=== PATIENT | female | born 1975 | race Caucasian/White ===

== ENCOUNTER → 2020-01-22 | Outpatient (CLI) | payer OTHER ==
[~2020-01-22] MED LIST: BIOTIN5000 MCG PO; MELATONIN3 M1 PO; METFORMIN HCL500 MG PO; PEPCID40 MG PO; TRAMADOL 50 MG50 MG PO; VITAMIN B-121000 MC3 PO; VITAMIN D350 MCG PO; WELLBUTRIN SR150 M1 PO
== END ==
LOC: M.LAB 13:16
PROVIDERS: ATTEND Surgery
DX: Z01.812 Encounter for preprocedural laboratory examination (principal); K80.20 Calculus of gallbladder without cholecystitis without obstruction; Z20.828 Contact with and (suspected) exposure to other viral communicable diseases

== ENCOUNTER → 2020-01-27 | Day surgery (SDC) | payer OTHER ==
[2020-01-27 06:34] LABS: HEMATOCRIT 37.5 % (37.0-47.0); HEMOGLOBIN 12.6 gm/dL (12.0-15.0)
--- NOTE | 2020-01-29 18:57 | OP ---
[address] [address] OPERATIVE REPORT Name: NAEEM HUANG Room: [facility]#: [id number] Admission: 01/27/20 Attend Phys: Jazz Feliciano Discharge: Date of : 71 Report #: [id number] THIS REPORT FOR: //name// cc: ADITI SABILLON PA-C, MASON PA-C ~ CC: Eddie SABILLON DICTATED BY: Sheng Gottlieb DO DATE OF SERVICE: 01/27/2020 PREOPERATIVE DIAGNOSIS: Cholelithiasis, biliary colic. POSTOPERATIVE DIAGNOSIS: Cholelithiasis with acute cholecystitis. PRIMARY SURGEON: Eddie Padgett DO. GLOVE PARTS CUTTER: Sheng Gottlieb DO, PGY4. OPERATION PERFORMED: Laparoscopic cholecystectomy. ANESTHESIA TYPE: General and regional TAP blocks. ESTIMATED BLOOD LOSS: 20. SPECIMEN REMOVED: Gallbladder. COMPLICATIONS: None. FINDINGS: Distended hyperemic hypervascular gallbladder with multiple peritoneal and mesenteric attachments consistent with acute cholecystitis as well as the gallbladder was full of small gravel-like stones. INDICATIONS FOR PROCEDURE: The patient is a pleasant 44-year-old female who presented to the office with chief complaint of right upper quadrant abdominal pain with nausea and vomiting exacerbated by postprandial fried and fatty foods. She was found to have cholelithiasis without signs of cholecystitis on abdominal ultrasound. We recommended laparoscopic cholecystectomy as outpatient and patient agreed to proceed. We discussed in detail with the patient both in the office and in the preoperative holding area. The procedure, alternatives, risks, and benefits and possible complications discussed to include but not limited to bleeding, infection, postoperative pain, scarring, hernia, injury to other underlying abdominal organs mainly bowel, liver, stomach and bile ducts. The patient voiced understanding and elected [place] [address] OPERATIVE REPORT Name: BELINDAAnaNAEEM Room: [facility]#: [id number] Admission: 01/27/20 Attend Phys: Jazz Feliciano Discharge: Date of : 71 Report #: [id number] OPERATIVE TECHNIQUE: The patient was again seen and examined in preoperative holding area. Fully informed written consent was obtained and anesthesia consented the patient for TAP blocks. Abdomen was marked. The patient was subsequently transported to the operating room suite and placed on the operating table in a comfortable supine position, 2 grams Ancef were given for preoperative antibiotics. At this time Anesthesia induced general anesthesia via endotracheal intubation. This was successful. Arms were outstretched on arm boards. SCDs were placed to bilateral lower extremity calves. Grounding pad was placed on the right lateral thigh, Upper extremity Edith Hugger was placed across the patient's chest. All extremities and joints were padded and protected. The safety strap was placed across the patient's lap. The patient was then prepped and draped using standard sterile fashion. Time-out was performed prior to onset of procedure. We began by making a vertical incision superior to the umbilicus. Using open Elliott technique, we dissected down to the subcutaneous tissue using blunt and electrocautery, with finger and S retractors to reach the level of fascia. One the midline fascia was reached it was grasped and elevated with two Kochers. Once this was performed, the fascia was transected using electrocautery. Hemostat was then used to the peritoneum and a finger sweep was then performed to ensure there was no bowel or adhesions obstructing our view. At this time, two 0 Vicryl stay sutures on a UR-6 were placed on the bilateral fascial edges and a 12 mm Mary trocar was placed in the abdomen. Abdomen was insufflated first using low flow then high flow. A 5 mm 0-degree laparoscopic camera was placed in the abdomen. Abdomen was surveyed noting no obvious gross acute issues. An additional 5 mm trocar was placed in the epigastric region and the right upper quadrant x2. These were placed under direct visualization. The gallbladder was lifted anteriorly and cephalad. Using a blunt grasper, the omental and peritoneal attachments were taken down from the gallbladder from anterior to lateral and then gently medially ensuring that we were in avascular plane. Once the peritoneum was detached it was pushed down bluntly. Jamal's pouch was located and grasped with grasper. Using hook cautery and laparoscopic suction irrigation and [place] grasper, the cystic duct was isolated circumferentially starting from the lateral edge of the gallbladder. There was noted to be a cystic artery, just posterior to this and medial. The cystic duct and artery were both isolated. There were able to get a critical view. There were two structures, and only two structures entering the gallbladder. All fibrofatty tissue was cleared from the hepatocystic triangle. The cystic duct was noted to be grossly dilated and too large to place a 5 mm metal clips. The epigastric trocar was upsized to a 12 mm trocar. Using now the clip survey coordinator, [address] [address] OPERATIVE REPORT Name: NAEEM HUANG Room: [facility]#: [id number] Admission: 01/27/20 Attend Phys: Jazz Feliciano Discharge: Date of : 71 Report #: [id number] the cystic duct was clipped proximally x 3 and distally x 3 and the cystic artery was clipped both once distally and once proximally. The cystic duct and artery were then transectd using laparoscopic scissors. The gallbladder was then removed from the liver bed and gallbladder fossa using electrocautery. Once it was fully excised, it was placed into an EndoCatch bag and placed to the side. Next, the right upper quadrant was copiously irrigated using laparoscopic suction irrigation. Hemostasis was easily achieved with electrocautery and there were no bile leaks noted for clips or the liver edge or liver bed. The patient was placed back in supine position. The abdomen was then desufflated under direct visualization after PMI closure device was used to close the fascia of the epigastric port site. Once the abdomen was fully desufflated, all the remaining 5 mm trocars were removed and the umbilical trocar was finally removed. The fascia of the umbilical site was then closed in an interrupted [id number] fashion using 0 Vicryl suture on a UR-6 needle and the 0 Vicryl stay sutures were tied together as well as reinforcement with excellent fascial closure. A layered closure was then performed. The remainder of this incision was closed using 3-0 interrupted Vicryl and the skin was closed using a subcuticular running 4-0 Monocryl. The remaining right upper quadrant trocar sites and skin were closed using interrupted subcuticular 4-0 Monocryl and the epigastric trocar site was closed in layered fashion using 3 interrupted Vicryl of the deep subcutaneous and dermal layers and the skin was closed using an interrupted subcuticular 4-0 Monocryl x 2. The abdomen was cleansed using wet and dry lap. Sterile dressing was applied. Dermabond skin glue. The patient tolerated the procedure well and was extubated in the OR, transferred to PACU in stable condition after brief recovery from anesthesia. PLAN: Discharged home. Follow up in the office with Dr. Padgett in 1 week. <ELECTRONICALLY SIGNED> By: Eddie Padgett DO 01/29/20 [id number] Padgett DO /nt
== END | disposition home or self-care (01) ==
LOC: M.SUR 06:07
PROVIDERS: ATTEND Surgery
DX: K80.00 Calculus of gallbladder with acute cholecystitis without obstruction (principal); Z79.899 Other long term (current) drug therapy; Z98.890 Other specified postprocedural states